=== PATIENT | female | born 1980 | race African-American/Black ===

== ENCOUNTER 2017-03-04 20:55 | Emergency (ER) | payer SELFPAY ==
[2017-03-04 20:57] VITALS: BP 144/81; PULSE 82; RESP 16; TEMP 99; O2SAT 100
== END 2017-03-05 00:07 | disposition left against medical advice (07) ==
LOC: NED 20:55
DX: M79.674 Pain in right toe(s) (principal); Z53.21 Procedure and treatment not carried out due to patient leaving prior to being seen by health care provider
CPT/HCPCS: 99281